=== PATIENT | female | born 1970 | race Caucasian/White ===

== ENCOUNTER 2016-10-28 19:48 | Emergency (ER) | payer OTHER ==
--- NOTE | 2016-10-28 20:21 | ED ORDER SUMMARY ---
..... Patient: IVAN NIEVES OrderSheet [facility] VisitID: [id number] [address] [place] [address] 46y, F Registration Date/Time: 10/28/2016 ORDER SHEET Weight: 63.5 kg (estimated) Allergies: No Known Drug Allergy GENERAL ORDERS: Ankle 3 or 4V Right Urgent (20:08 10/28/2016 Irving Watson) (Ack 20:11 [facility] Geophysical Drafter) (20:16 [facility] Geophysical Drafter) MEDICATION ORDERS: IV FLUIDS: ORDER SHEET NOTES: [Electronically signed by Laura Bianchi P.A.-C (20:53 10/28/2016)] [Electronically signed by Birgit Danielle R.N. (21:03 10/28/2016)] [Electronically locked/signed by Birgit Danielle R.N. (21:03 10/28/2016)]
--- NOTE | 2016-10-28 20:21 | ED NURSING NOTES ---
Clinical Report - Nurses [facility] [place] [address] 10/28/2016 19:50 Patient: IVAN NIEVES TRIAGE Triage time 1952. Acuity: LEVEL 4. Chief Complaint: INJURY TO RIGHT ANKLE. Alert. No acute distress. --20:05 Polly Gilliland 20:02 10/28/16. BP: 166/104. HR: 93. RR: 16. O2 saturation: 98%. Temp: 98.4 F. Pain level now 10. --20:05 Polly Gilliland. Weight: 63.5 kg estimated. Height/Length: 67 inches Estimated. BMI: 21.9. --20:01 Polly Gilliland. Medications None. --20:03 Polly Gilliland. Allergies No Known Drug Allergy. --20:03 Polly Gilliland. History Arrived by private vehicle. Historian: patient. Accompanied by family. This occurred at an unknown time. ( Pt with pain and swelling to lateral malleolus, denies injury). Treatment PRESENTATION MANAGER: Ice. SOCIAL HX: Heavy tobacco smoker (cigarette)- less than 1 pack per day. --20:05 Polly Gilliland. Interventions ID band on patient. To treatment room. --20:05 Polly Gilliland. PHYSICAL ASSESSMENT GENERAL / NEURO / PSYCH: Oriented X 4. Alert. Appears anxious. EXTREMITIES: Capillary refill is less than 2 seconds in the extremities. Extremity pulses are within normal limits. Pain with weight bearing. Neuro-vascular status intact to the extremity. Right ankle: tenderness and swelling. Limited ROM secondary to pain. SKIN: Skin is warm and dry. --20:06 Polly Gilliland. NURSING PROGRESS NOTES Stirrup air lower extremity splint applied to right ankle by tech. Distal pulses intact, sensation intact and motor within normal limits. --20:44 Alfredo Eng, SB Gas Combustion Engineer. DISPOSITION / DISCHARGE Departure time: 2039Oct 28 2016. Condition at departure: improved and stable. No learning barriers present. Discharge instructions provided and reviewed with the patient. Reviewed medication(s) side effects, precautions and dosing information. Prescription(s) given to the patient. Family verbalized understanding. Written instructions provided in [place]. The patient was discharged by the physician regulatory assistant. She was discharged home and accompanied by family. She left the Emergency Department ambulatory and via private vehicle. --21:03 Birgit Danielle R.N. 21:02 10/28/16. BP: 166/105. BP. PA notified. --21:03 Birgit Danielle R.N. Locked/Released at 10/28/2016 21:03 by Birgit Danielle R.N.
--- NOTE | 2016-10-28 20:21 | DIAGNOSTIC IMAGING REPORT ---
PROCEDURE: XR ANKLE 3 OR 4 VIEWS - RIGHT INDICATION: TRAUMA/INJURY TECHNIQUE: Four views. COMPARISON: None. FINDINGS: Mild soft tissue swelling over the lateral malleolus. Osseous structures and joint spaces are normal. No evidence of fracture. IMPRESSION: 1. Soft tissue swelling. 2. Otherwise negative right ankle. 3. Findings discussed with PAC. Chrystal
--- NOTE | 2016-10-28 20:21 | ED ORDER SUMMARY ---
..... Patient: VIAN NIEVES OrderSheet [facility] VisitID: [id number] [address] [place] [address] 46y, F Registration Date/Time: 10/28/2016 ORDER SHEET Weight: 63.5 kg (estimated) Allergies: No Known Drug Allergy GENERAL ORDERS: Ankle 3 or 4V Right Urgent (20:08 10/28/2016 Irving Watson) (Ack 20:11 [facility] Management Expert) (20:16 [facility] ER Management Expert) MEDICATION ORDERS: IV FLUIDS: ORDER SHEET NOTES: [Electronically signed by Laura Bianchi P.A.-C (20:53 10/28/2016)] [Electronically signed by Birgit Danielle R.N. (21:03 10/28/2016)] [Electronically locked/signed by Birgit Danielle R.N. (21:03 10/28/2016)]
--- NOTE | 2016-10-28 20:21 | ED CLINICAL REPORT ---
Clinical Report - Physicians/Mid Levels [facility] [address] [place] [address] 10/28/2016 19:50 Patient: IVAN NIEVES Time Seen: 2019. Arrived- By private vehicle. HISTORY OF PRESENT ILLNESS Chief Complaint: Injury to the right foot. The injury happened today. Occurred at home. The patient sustained a twisting injury. Patient is experiencing mild pain. Pain is not moderate. Patient denies injury to the head. (pain/ swelling, denies any history of trauma. Denies gout. Denies surgery to the area. Denies any rash to the area, reports icing in er and swelling improving. Denies paresthesias.). REVIEW OF SYSTEMS The patient complains of pain on weight bearing. No skin laceration. All systems otherwise negative, except as recorded above. PAST HISTORY The patient has not had a prior injury to the same area. Tetanus immunization status is up-to-date. SOCIAL HISTORY Smoker- current status unknown. ADDITIONAL NOTES The nursing notes have been reviewed. PHYSICAL EXAM Vital Signs: 10/28/2016 20:02 BP: 166/104. HR: 93. RR: 16. O2 saturation: 98%. Temp: 98.4 F. Appearance: Alert. No acute distress. Head: Head atraumatic. Neck: Normal inspection. Neck supple. CVS: Normal heart rate and rhythm. Heart sounds normal. Respiratory: No respiratory distress. Breath sounds normal. No chest wall injury or accessory muscle use. Abdomen: No visible injury. Soft. Skin: Skin intact. Skin warm. Extremities: Right posterior ankle. No tenderness or laceration. Right lateral ankle: mild tenderness and swelling. No ecchymosis or foreign body. Right medial ankle. No tenderness. Base of the right 5th metatarsal. No tenderness or swelling. Right foot. No tenderness or swelling. No foot injury. Gait: Limping gait. Neuro, Vascular and Tendons: Vascular status intact. Motor intact. Neuro: Oriented X 3. LABS, X-RAYS, AND EKG Rt Ankle X-ray: (IMPRESSION: 1. Soft tissue swelling. 2. Otherwise negative right ankle. 3. Findings discussed with DEACON Jarrell. Electronically Final signed by:Allan Gillette MD 10/28/2016 8:19:48 PM). PROGRESS AND PROCEDURES PROCEDURES (R. ankle air stirrup, ns intact). Course of Care: Patient with isolated right ankle swelling, with good range of motion, good distal sensation. Good dorsalis pedal pulse. With no history of acute trauma. No signs of infectious process or underlying erythema. Patient with no history of gout. Minimal pain able to bear weight. Patient is stable. Symptoms better. Patient/family counseled. Disposition: Discharged. Condition: good. CLINICAL IMPRESSION Sprain of the tibiofibular ligament of the right ankle. INSTRUCTIONS Apply ice. You may walk and bear weight as tolerated. Prescription Medications: Ibuprofen take 1 tablet orally every 8 hours for 5 days, as needed for pain. Dispense fifteen (15). No refill. Follow-up: Follow up with your doctor. Understanding of the discharge instructions verbalized by patient. (Electronically signed by Laura Bianchi P.A.-C 10/28/2016 20:53)
--- NOTE | 2016-10-28 20:21 | ED CLINICAL REPORT ---
Clinical Report - Physicians/Mid Levels [facility] [address] [place] [address] 10/28/2016 19:50 Patient: IVAN NIEVES Time Seen: 2019. Arrived- By private vehicle. HISTORY OF PRESENT ILLNESS Chief Complaint: Injury to the right foot. The injury happened today. Occurred at home. The patient sustained a twisting injury. Patient is experiencing mild pain. Pain is not moderate. Patient denies injury to the head. (pain/ swelling, denies any history of trauma. Denies gout. Denies surgery to the area. Denies any rash to the area, reports icing in er and swelling improving. Denies paresthesias.). REVIEW OF SYSTEMS The patient complains of pain on weight bearing. No skin laceration. All systems otherwise negative, except as recorded above. PAST HISTORY The patient has not had a prior injury to the same area. Tetanus immunization status is up-to-date. SOCIAL HISTORY Smoker- current status unknown. ADDITIONAL NOTES The nursing notes have been reviewed. PHYSICAL EXAM Vital Signs: 10/28/2016 20:02 BP: 166/104. HR: 93. RR: 16. O2 saturation: 98%. Temp: 98.4 F. Appearance: Alert. No acute distress. Head: Head atraumatic. Neck: Normal inspection. Neck supple. CVS: Normal heart rate and rhythm. Heart sounds normal. Respiratory: No respiratory distress. Breath sounds normal. No chest wall injury or accessory muscle use. Abdomen: No visible injury. Soft. Skin: Skin intact. Skin warm. Extremities: Right posterior ankle. No tenderness or laceration. Right lateral ankle: mild tenderness and swelling. No ecchymosis or foreign body. Right medial ankle. No tenderness. Base of the right 5th metatarsal. No tenderness or swelling. Right foot. No tenderness or swelling. No foot injury. Gait: Limping gait. Neuro, Vascular and Tendons: Vascular status intact. Motor intact. Neuro: Oriented X 3. LABS, X-RAYS, AND EKG Rt Ankle X-ray: (IMPRESSION: 1. Soft tissue swelling. 2. Otherwise negative right ankle. 3. Findings discussed with DEACON Jarrell. Electronically Final signed by:Allan Gillette MD 10/28/2016 8:19:48 PM). PROGRESS AND PROCEDURES PROCEDURES (R. ankle air stirrup, ns intact). Course of Care: Patient with isolated right ankle swelling, with good range of motion, good distal sensation. Good dorsalis pedal pulse. With no history of acute trauma. No signs of infectious process or underlying erythema. Patient with no history of gout. Minimal pain able to bear weight. Patient is stable. Symptoms better. Patient/family counseled. Disposition: Discharged. Condition: good. CLINICAL IMPRESSION Sprain of the tibiofibular ligament of the right ankle. INSTRUCTIONS Apply ice. You may walk and bear weight as tolerated. Prescription Medications: Ibuprofen take 1 tablet orally every 8 hours for 5 days, as needed for pain. Dispense fifteen (15). No refill. Follow-up: Follow up with your doctor. Understanding of the discharge instructions verbalized by patient. (Electronically signed by Laura Bianchi P.A.-C 10/28/2016 20:53)
--- NOTE | 2016-10-28 20:21 | ED NURSING NOTES ---
Clinical Report - Nurses [facility] [place] [address] 10/28/2016 19:50 Patient: IVAN NIEVES TRIAGE Triage time 1952. Acuity: LEVEL 4. Chief Complaint: INJURY TO RIGHT ANKLE. Alert. No acute distress. --20:05 Polly Gilliland 20:02 10/28/16. BP: 166/104. HR: 93. RR: 16. O2 saturation: 98%. Temp: 98.4 F. Pain level now 10. --20:05 Polly Gilliland. Weight: 63.5 kg estimated. Height/Length: 67 inches Estimated. BMI: 21.9. --20:01 Polly Gilliland. Medications None. --20:03 Polly Gilliland. Allergies No Known Drug Allergy. --20:03 Polly Gilliland. History Arrived by private vehicle. Historian: patient. Accompanied by family. This occurred at an unknown time. ( Pt with pain and swelling to lateral malleolus, denies injury). Treatment PARTS PICKER: Ice. SOCIAL HX: Heavy tobacco smoker (cigarette)- less than 1 pack per day. --20:05 Polly Gilliland. Interventions ID band on patient. To treatment room. --20:05 Polly Gilliland. PHYSICAL ASSESSMENT GENERAL / NEURO / PSYCH: Oriented X 4. Alert. Appears anxious. EXTREMITIES: Capillary refill is less than 2 seconds in the extremities. Extremity pulses are within normal limits. Pain with weight bearing. Neuro-vascular status intact to the extremity. Right ankle: tenderness and swelling. Limited ROM secondary to pain. SKIN: Skin is warm and dry. --20:06 Polly Gilliland. NURSING PROGRESS NOTES Stirrup air lower extremity splint applied to right ankle by tech. Distal pulses intact, sensation intact and motor within normal limits. --20:44 Alfredo Eng, SB Meter Installer And Remover. DISPOSITION / DISCHARGE Departure time: 2039Oct 28 2016. Condition at departure: improved and stable. No learning barriers present. Discharge instructions provided and reviewed with the patient. Reviewed medication(s) side effects, precautions and dosing information. Prescription(s) given to the patient. Family verbalized understanding. Written instructions provided in Greek. The patient was discharged by the physician outpatient physical therapist assistant. She was discharged home and accompanied by family. She left the Emergency Department ambulatory and via private vehicle. --21:03 Birgit Danielle R.N. 21:02 10/28/16. BP: 166/105. BP. PA notified. --21:03 Birgit Danielle R.N. Locked/Released at 10/28/2016 21:03 by Birgit Danielle R.N.
--- NOTE | 2016-10-28 21:04 | ED MAR SUMMARY ---
..... Medication Administration Record [facility] [address], [place] [id number] Patient: IVAN NIEVES Visit ID: [id number] 46y, F Weight: 63.5 kg Height/Length: 67 in BMI: 21.9 ALLERGIES: No Known Drug Allergy
--- NOTE | 2016-10-28 21:04 | ED MED RECONCILIATION SUMMARY ---
Patient: IVAN NIEVES Medication Reconciliation Report [facility] VisitID: [id number] [address] [place] [address] 46y, F Registration Date/Time: 10/28/2016 Weight: 63.5 kg Height/Length: 67 in. BMI: 21.9 ALLERGIES: No Known Drug Allergy The patient's Home Medications are listed below: NONE. The source(s) of the original Home Medication information: Not obtained. The following Medications were given to the patient in the Emergency Department: None. The following Medications were prescribed to the patient: Ibuprofen take 1 tablet orally every 8 hours for 5 days, as needed for pain. Dispense fifteen (15). No refill. -- Laura Bianchi P.A.-C
--- NOTE | 2016-10-28 21:04 | ED DISCHARGE INSTRUCTIONS ---
Patient: IVAN NIEVES General Instructions [facility] VisitID: [id number] [address] [place] [address] 46y, F Registration Date/Time: 10/28/2016 Sprain of the tibiofibular ligament of the right ankle. INSTRUCTIONS Apply ice. You may walk and bear weight as tolerated. Prescription Medications: Ibuprofen take 1 tablet orally every 8 hours for 5 days, as needed for pain. Dispense fifteen (15). No refill. Follow-up: Follow up with your doctor. Understanding of the discharge instructions verbalized by patient. ADDITIONAL INFORMATION Sprain, Ankle,With X-Ray A sprain is an injury to the ligaments or capsule that holds a joint together. There are no broken bones. Most sprains take from four to six weeks to heal. If the ligament is completely torn (severe sprain), it can take several months to recover. Mild to moderate sprains may be treated with an elastic wrap or an in-shoe splint to provide support and prevent re-injury. A mild sprain may not require any additional support. A severe sprain may require surgery to repair. Home care The following guidelines will help you care for your injury at home: Stay off the injured leg as much as possible until you can walk on it without pain. If you have a lot of pain with walking, crutches or a walker may be prescribed. (These can be rented or purchased at many pharmacies and surgical or orthopedic supply stores). Follow your doctor's advice regarding when to begin bearing weight on that leg. Keep your leg elevated to reduce pain and swelling. When sleeping, place a pillow under the injured leg. When sitting, support the injured leg so it is level with your waist. This is very important during the first 48 hours. Apply an ice pack (ice cubes in a plastic bag, wrapped in a towel) over the injured area for 20 minutes every 12 hours the first day. You can place the ice pack directly over the splint/cast. If you were given a boot, open it to apply the ice pack. Continue with ice packs 34 times a day for the next two days, then as needed for the relief of pain and swelling. You may use acetaminophen or ibuprofen to control pain, unless another pain medicine was prescribed. If you have chronic liver or kidney disease or ever had a stomach ulcer or GI bleeding, talk with your doctor before using these medicines. You may return to sports after healing, when you can run without pain. A sprained ankle is at risk for re-injury during the first six weeks. During that time, protect your ankle with an in-shoe splint that prevents tilting of your ankle from side to side. This is very important if you do active work or play sports during that time. Follow-up care Any X-rays you had today dont show any broken bones, breaks, or fractures. Sometimes fractures dont show up on the first X-ray. Bruises and sprains can sometimes hurt as much as a fracture. These injuries can take time to heal completely. If your symptoms dont improve or they get worse, talk with your doctor. You may need a repeat X-ray. When to seek medical care Get prompt medical attention if any of the following occur: The plaster cast or splint gets wet or soft The fiberglass cast or splint gets wet and does not dry for 24 hours Pain or swelling increases, or redness appears Toes become cold, blue, numb or tingly Re-injure your ankle Ibuprofen Oral tablet What is this medicine? IBUPROFEN (eye BYOO proe fen) is a non-steroidal anti-inflammatory drug (NSAID). It is used for dental pain, fever, headaches or migraines, osteoarthritis, rheumatoid arthritis, or painful monthly periods. It can also relieve minor aches and pains caused by a cold, flu, or sore throat. How should I use this medicine? Take this medicine by mouth with a glass of water. Follow the directions on the prescription label. Take this medicine with food if your stomach gets upset. Try to not lie down for at least 10 minutes after you take the medicine. Take your medicine at regular intervals. Do not take your medicine more often than directed. A special MedGuide will be given to you by the pharmacist with each prescription and refill. Be sure to read this information carefully each time. Talk to your account manager regarding the use of this medicine in children. Special care may be needed. What side effects may I notice from receiving this medicine? Side effects that you should report to your doctor or health home health care worker as soon as possible: allergic reactions like skin rash, itching or hives, swelling of the face, lips, or tongue black or bloody stools, blood in the urine or in vomit breathing problems changes in vision chest pain general ill feeling or flu-like symptoms nausea or vomiting redness, blistering, peeling or loosening of the skin, including inside the mouth slurred speech or weakness on one side of the body stomach pain unexplained weight gain or swelling unusually weak or tired yellowing of eyes or skin Side effects that usually do not require medical attention (report to your doctor or health home health care worker if they continue or are bothersome): constipation or diarrhea dizziness gas or heartburn stomach upset What may interact with this medicine? Do not take this medicine with any of the following medications: cidofovir ketorolac methotrexate pemetrexed This medicine may also interact with the following medications: alcohol aspirin diuretics lithium other drugs for inflammation like prednisone warfarin What if I miss a dose? If you miss a dose, take it as soon as you can. If it is almost time for your next dose, take only that dose. Do not take double or extra doses. Where should I keep my medicine? Keep out of the reach of children. Store at room temperature between 15 and 30 degrees C (59 and 86 degrees F). Keep container tightly closed. Throw away any unused medicine after the expiration date. What should I tell my health care provider before I take this medicine? They need to know if you have any of these conditions: asthma cigarette smoker drink more than 3 alcohol containing drinks a day heart disease or circulation problems such as heart failure or leg edema (fluid retention) high blood pressure kidney disease liver disease stomach bleeding or ulcers an unusual or allergic reaction to ibuprofen, aspirin, other NSAIDS, other medicines, foods, dyes, or preservatives or trying to get breast-feeding What should I watch for while using this medicine? Tell your doctor or healthcare professional if your symptoms do not start to get better or if they get worse. This medicine does not prevent heart attack or stroke. In fact, this medicine may increase the chance of a heart attack or stroke. The chance may increase with longer use of this medicine and in people who have heart disease. If you take aspirin to prevent heart attack or stroke, talk with your doctor or health home health care worker. Do not take other medicines that contain aspirin, ibuprofen, or naproxen with this medicine. Side effects such as stomach upset, nausea, or ulcers may be more likely to occur. Many medicines available without a prescription should not be taken with this medicine. This medicine can cause ulcers and bleeding in the stomach and intestines at any time during treatment. Ulcers and bleeding can happen without warning symptoms and can cause . To reduce your risk, do not smoke cigarettes or drink alcohol while you are taking this medicine. You may get drowsy or dizzy. Do not drive, use machinery, or do anything that needs mental alertness until you know how this medicine affects you. Do not stand or sit up quickly, especially if you are an older patient. This reduces the risk of dizzy or fainting spells. This medicine can cause you to bleed more easily. Try to avoid damage to your teeth and gums when you brush or floss your teeth. You have been given the following additional information: Sprain, Ankle, With X-Ray Ibuprofen Oral tablet You may walk and bear weight as tolerated. (Electronically signed by Laura Bianchi P.A.-C 10/28/2016 20:53)
--- NOTE | 2016-10-28 21:04 | ED MED RECONCILIATION SUMMARY ---
Patient: IVAN NIEVES Medication Reconciliation Report [facility] VisitID: [id number] [address] [place] [address] 46y, F Registration Date/Time: 10/28/2016 Weight: 63.5 kg Height/Length: 67 in. BMI: 21.9 ALLERGIES: No Known Drug Allergy The patient's Home Medications are listed below: NONE. The source(s) of the original Home Medication information: Not obtained. The following Medications were given to the patient in the Emergency Department: None. The following Medications were prescribed to the patient: Ibuprofen take 1 tablet orally every 8 hours for 5 days, as needed for pain. Dispense fifteen (15). No refill. -- Laura Bianchi P.A.-C
--- NOTE | 2016-10-28 21:04 | ED MAR SUMMARY ---
..... Medication Administration Record [address] [place], [place] [id number] Patient: IVAN NIEVES Visit ID: [id number] 46y, F Weight: 63.5 kg Height/Length: 67 in BMI: 21.9 ALLERGIES: No Known Drug Allergy
== END 2016-10-28 20:40 | disposition home or self-care (01) ==
LOC: ED SRH 19:48
DX: S93.431A Sprain of tibiofibular ligament of right ankle, initial encounter (principal); X50.1XXA Overexertion from prolonged static or awkward postures, initial encounter; Y93.9 Activity, unspecified; Y99.9 Unspecified external cause status; Y92.009 Unspecified place in unspecified non-institutional (private) residence as the place of occurrence of the external cause